=== PATIENT | female | born 1980 | race American Indian/Alaskan Native ===

== ENCOUNTER 2016-06-03 09:06 | Emergency (ER) | payer OTHER, MEDICAID ==
[2016-06-03 09:18] VITALS: BP 119/78
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
--- NOTE | 2016-06-03 12:57 | Cat Scan Report ---
CRANIAL CT SCAN: Serial contiguous axial images were obtained through the cranium. Intravenous contrast material was not administered. The ventricles are normal in size and appearance. There is no mass effect or midline shift. No areas of abnormally increased or decreased attenuation are seen. No mass lesion is seen. The mastoid air cells and visualized portions of the sinuses are normal. IMPRESSION: Cranial CT scan within normal limits.
--- NOTE | 2016-06-03 12:59 | Cat Scan Report ---
CT of the cervical spine. History: Neck pain after in the day. Findings: There is no evidence of fracture, subluxation, or other acute findings. There is reversal of the lordotic curvature. No prevertebral soft tissue edema is seen. The odontoid is intact. Impression: No acute findings.
[2016-06-03] MEDS ORDERED: FLEXERIL PO ONE (13:27)
[2016-06-03] MEDS ORDERED: NORCO 5/325 PO ONE (13:27)
== END 2016-06-03 13:45 | disposition home or self-care (01) ==
LOC: ED 09:06
DX: S16.1XXA Strain of muscle, fascia and tendon at neck level, initial encounter (principal); S39.012A Strain of muscle, fascia and tendon of lower back, initial encounter; S00.83XA Contusion of other part of head, initial encounter; M25.50 Pain in unspecified joint; V89.2XXA Person injured in unspecified motor-vehicle accident, traffic, initial encounter; Y93.9 Activity, unspecified; Y99.9 Unspecified external cause status; Y92.410 Unspecified street and highway as the place of occurrence of the external cause
CPT/HCPCS: 70450; 72125